=== PATIENT | female | born 1950 | race Caucasian/White ===

== ENCOUNTER 2016-10-21 07:09 | Day surgery (SDC) | payer BC ==
--- NOTE | ~2016-10-21 | OP ---
Record Of Operation [facility] [address] [address] NAME: CHEVY BANDA : [birth year] STATUS : REG [facility] PAT#: [id number] AGE: 66 ADM/REG DATE : 10/21/16 MR#: [id number] REPORT SERV DATE: 10/21/16 DICTATED BY: JUAN LUIS SUN DATE: 10/21/16 REPORT STATUS : Draft TRANSCRIBED BY: MODL DATE: 10/21/16 DATE OF PROCEDURE: 10/21/2016 PROCEDURE: Esophagogastroduodenoscopy. INDICATION: Follow up with the patient with severe erosive esophagitis. SEDATION: Diprivan. FINDING: Olympus video scope was passed into the esophagus. There was significant improvement from 08/24/2016 note. There were still inflammation and ulceration, but some of the mucosa had returned. Most of it was erosive changes and breaks in mucosa without definite ulceration. There was a mild stricture present. A small hiatal hernia present. The stomach and duodenum were normal. Retroflexion in the fundus was otherwise normal. IMPRESSION: Improved erosive esophagitis, probably down to grade 2 on the Savary-Rocha scale. PLAN: Repeat in six weeks. We will consider dilatation at that point. MG/DEREK Juan Luis Sun M.D. / [id number] CC: Emma España MARK
--- NOTE | ~2016-10-21 | EGD ---
EGD REPORT [facility] [address] [address] NAME: CHEVY BANDA : [birth year] STATUS : REG [facility]#: [id number] AGE: 66 ADM/REG DATE : 10/21/16 MR#: [id number] REPORT SERV DATE: 10/21/16 DICTATED BY: JUAN LUIS SUN DATE: 10/21/16 REPORT STATUS : Draft [facility]ANSCRIBED BY: [facility] DATE: 10/21/16 Endoscopy Center Patient Name: Chevy Banda Date of : 1950 Attending MD: JUAN LUIS SUN MD Procedure Date No Time: 10/21/2016 Procedure: Upper GI endoscopy Indications: Follow-up of reflux esophagitis Referring MD: ELY FISCHER MD Medicines: Propofol per Anesthesia Complications: No immediate complications. Procedure: Pre-Anesthesia Assessment: - ASA Grade Assessment: III - A patient with severe systemic disease. After obtaining informed consent, the endoscope was passed under direct vision. Throughout the procedure, the patient's blood pressure, pulse, and oxygen saturations were monitored continuously. The GIF H190 [id number] was introduced through the mouth, and advanced to the second part of duodenum. The upper GI endoscopy was accomplished without difficulty. The patient tolerated the procedure well. Findings: Savary-Rocha Grade IV (Grade I-III, complicated by ulcer(s), stricture(s), or shortening) esophagitis with bleeding was found in the lower third of the esophagus. A medium-sized hiatus hernia was present. The examined duodenum was normal. Impression: - Savary-Rocha Grade IV erosive esophagitis. - Hiatus hernia. - Normal examined duodenum. Recommendation: - Return to previous diet today. - Continue present medications. - Repeat the upper endoscopy in 6 weeks for surveillance. - Continue present medications. - The findings and recommendations were discussed with the patient and their family. - After the procedure, if you experience any pain in abdomen or chest,shortness of breath,fever,chills,blood in stool,rectal bleeding,vomiting of any material,nausea,black stools or weakness or dizziness, GO TO THE EMERGENCY IMMEDIATELY!!!!!!!!! EGD REPORT [address] [address] NAME: CHEVY BANDA : [birth year] STATUS : REG [facility]#: [id number] AGE: 66 ADM/REG DATE : 10/21/16 MR#: [id number] REPORT SERV DATE: 10/21/16 DICTATED BY: JUAN LUIS USN. DATE: 10/21/16 REPORT STATUS : Draft TRANSCRIBED BY: [employer] DATE: 10/21/16 Procedure Code(s): --- Professional --- 37372, Esophagogastroduodenoscopy, flexible, transoral; diagnostic, including collection of specimen(s) by brushing or washing, when performed (separate procedure) Diagnosis Code(s): --- Professional --- K20.8, Other esophagitis K44.9, Diaphragmatic hernia without obstruction or gangrene K21.0, Gastro-esophageal reflux disease with esophagitis CPT copyright 2013 [employer]. All rights reserved. The codes documented in this report are preliminary and upon cloth mercerizer back tender review may be revised to meet current compliance requirements. Attending Participation: I personally performed the entire procedure. Juan Luis Sun MD JUAN LUIS SUN MD 10/21/2016 8:39 AM This report has been signed electronically. Number of Addenda: 0 Note Initiated On: 10/21/2016 8:23 AM Scope Withdrawal Time 0 hours 0 minutes 0 seconds [address] [id number]
[~2016-10-21 07:09] MED LIST: ACET500CAP; ASAB PO; AT25; AT25 PO; BEN25 PO; CALTRA600D PO; CELLCEPT IV; CELLCEPT5 PO; KCL20UDL PO/LIQ; KLOR-CON 1010 MEQ PO; LEVOTHYROXIN100 MCG PO; LEVOTHYROXIN88 MCG PO; LORTABLIQ PO; LOVENOX40 SC; LYRICA PO/LIQ; LYRICA50 PO; MEDROLPAK4 PO; METHOC750B PO; MOBIC15 MG PO; NATURA2 OP; NEUR300 PO; NEXIUM40 MG PO; NEXIUM40 PO; NORCO1 TA2 PO; NORV5 PO; NYS500UDL PO; OCEAN NAS; OCUVITE PO; P10 PO; P20 PO; P5 PO; PEP20 PO; PEPCID40 MG PO; PREDNISONE2.5 MG PO; PRILOSEC40 MG PO; PROTONIX PO; SUCR PO; ULTRAM50 PO; VITAMIN D31000 UNIT PO; ZANTAC300 MG PO; ZOFRAN4 PO; ZOL100 PO; ZOL50 PO; [UNRECOGNIZED DRUG - OTHER] PO
[2016-12-04] MEDS ORDERED: MAX D3 PO (11:08)
[2016-12-04] MEDS ORDERED: MULTIPLE VIT PO (11:09)
[2016-12-04] MEDS ORDERED: BEN25 PO (11:11)
[2017-01-29] MEDS ORDERED: CELLCEPT5 PO (14:05)
[2017-01-29] MEDS ORDERED: AREDS EYE VIT PO (14:07)
[2017-01-29] MEDS ORDERED: VITAMIN B-121000 MC1 SL (14:18)
== END 2016-10-21 23:59 | disposition home or self-care (01) ==
LOC: DMU 07:09
PROVIDERS: Internal Medicine Gastroenterology
PROC: 0DJ08ZZ Inspection of Upper Intestinal Tract, Via Natural or Artificial Opening Endoscopic (ICD-10-PCS; principal; 2016-10-21 08:30)
DX: K21.0 Gastro-esophageal reflux disease with esophagitis (principal); K44.9 Diaphragmatic hernia without obstruction or gangrene; I10 Essential (primary) hypertension; E03.9 Hypothyroidism, unspecified; M34.1 CR(E)ST syndrome; D64.9 Anemia, unspecified; M19.90 Unspecified osteoarthritis, unspecified site; M35.3 Polymyalgia rheumatica; G62.9 Polyneuropathy, unspecified; Z88.8 Allergy status to other drugs, medicaments and biological substances; Z79.52 Long term (current) use of systemic steroids; Z79.899 Other long term (current) drug therapy

== ENCOUNTER 2016-12-09 07:09 | Day surgery (SDC) | payer BC ==
--- NOTE | ~2016-12-09 | EGD ---
EGD REPORT [facility] [address] [address] NAME: CHEVY BANDA : [birth year] STATUS : REG [facility]#: [id number] AGE: 66 ADM/REG DATE : 12/09/16 MR#: [id number] REPORT SERV DATE: 12/09/16 DICTATED BY: JUAN LUIS SUN DATE: 12/09/16 REPORT STATUS : Draft TRANSCRIBED BY: [facility] DATE: 12/09/16 Endoscopy Center Patient Name: Chevy Banda Date of : 1950 Attending MD: JUAN LUIS SUN MD Procedure Date No Time: 12/09/2016 Procedure: Upper GI endoscopy Indications: For therapy of esophageal stricture Referring MD: ELY FISCHER MD Medicines: Propofol per Anesthesia Complications: No immediate complications. Procedure: Pre-Anesthesia Assessment: - ASA Grade Assessment: III - A patient with severe systemic disease. After obtaining informed consent, the endoscope was passed under direct vision. Throughout the procedure, the patient's blood pressure, pulse, and oxygen saturations were monitored continuously. The GIF H190 [id number] was introduced through the mouth, and advanced to the second part of duodenum. The upper GI endoscopy was accomplished without difficulty. The patient tolerated the procedure well. Findings: Savary-Rocha Grade IV (Grade I-III, complicated by ulcer(s), stricture(s), or shortening) esophagitis with bleeding was found in the entire esophagus. A TTS dilator was passed through the scope. Dilation with a 12-13.5-15 mm x 5.5 cm CRE balloon (to a maximum balloon size of 15 mm) dilator was performed. Estimated blood loss was minimal. A small hiatus hernia was present. The examined duodenum was normal. Impression: - Savary-Rocha Grade IV erosive esophagitis. Dilated. - Hiatus hernia. - Normal examined duodenum. Recommendation: - Return to previous diet today. - Continue present medications. - Repeat the upper endoscopy in 8 weeks for retreatment. - The findings and recommendations were discussed with the patient and their family. - After the procedure, if you experience any pain in abdomen or chest,shortness of breath,fever,chills,blood in stool,rectal bleeding,vomiting of any material,nausea,black stools or weakness or dizziness, EGD REPORT [facility] [id number] [place]. [address] NAME: CHEVY BANDA : [birth year] STATUS : REG [facility]#: [id number] AGE: 66 ADM/REG DATE : 12/09/16 MR#: [id number] REPORT SERV DATE: 12/09/16 DICTATED BY: JUAN LUIS SUN DATE: 12/09/16 REPORT STATUS : Draft TRANSCRIBED BY: [employer] DATE: 12/09/16 GO TO THE EMERGENCY IMMEDIATELY!!!!!!!!! Procedure Code(s): --- Professional --- 85093, Esophagogastroduodenoscopy, flexible, transoral; with transendoscopic balloon dilation of esophagus (less than 30 mm diameter) Diagnosis Code(s): --- Professional --- K20.8, Other esophagitis K44.9, Diaphragmatic hernia without obstruction or gangrene K22.2, Esophageal obstruction CPT copyright 2013 [employer]. All rights reserved. The codes documented in this report are preliminary and upon welt stitch cleaner review may be revised to meet current compliance requirements. Attending Participation: I personally performed the entire procedure. Juan Luis Sun MD JUAN LUIS SUN MD 12/09/2016 9:09 AM This report has been signed electronically. Number of Addenda: 0 Note Initiated On: 12/09/2016 8:52 AM Scope Withdrawal Time 0 hours 0 minutes 0 seconds [address] [address]
--- NOTE | ~2016-12-09 | OP ---
Record Of Operation [facility] [address] [place]. [address] NAME: CHEVY BANDA : [birth year] [place]US : [place] [facility] [place]#: [id number] AGE: 66 ADM/REG DATE : 12/09/16 MR#: [id number] REPORT SERV DATE: 12/09/16 DICTATED BY: JUAN LUIS SUN DATE: 12/09/16 REPORT STATUS : Draft TRANSCRIBED BY: MODL DATE: 12/09/16 DATE OF PROCEDURE: 12/09/2016 PROCEDURE: Esophagogastroduodenoscopy and balloon dilatation. 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 Last done about two months ago. SEDATION: Diprivan. FINDINGS: Olympus videoscope was passed into the esophagus. There were still corrosions involving at least 75% of the circumference up to the proximal esophagus. All the ulcerations were much less deep and there was much decreased exudate. There was a stricture at the EG junction. A small hiatal hernia was noted. The CRE balloon was inflated from 12 to 15 mm with mild expansion. The luminal diameter was probably about 15 mm. The area was improved from before. IMPRESSION: Improved area of the erosive and ulcerative esophagitis. Savary-Rocha scale 4- 5. There was much less deep ulceration. There were still erosions on the surface, but it was much improved. PLAN: We will consider adding sodium bicarb to the present regimen and have PPI. MG/MODL Juan Luis Sun M.D. / [id number] CC: Emma España M.D.
[~2016-12-09 07:09] MED LIST changes: +MAX D3 PO; +MULTIPLE VIT PO
[2017-01-29] MEDS ORDERED: CELLCEPT5 PO (14:05)
[2017-01-29] MEDS ORDERED: AREDS EYE VIT PO (14:07)
[2017-01-29] MEDS ORDERED: VITAMIN B-121000 MC1 SL (14:18)
== END 2016-12-09 23:59 | disposition home health service (06) ==
LOC: DMU 07:09
PROVIDERS: Internal Medicine Gastroenterology
PROC: 0D758ZZ Dilation of Esophagus, Via Natural or Artificial Opening Endoscopic (ICD-10-PCS; principal; 2016-12-09 08:00)
DX: K22.2 Esophageal obstruction (principal); K44.9 Diaphragmatic hernia without obstruction or gangrene; I10 Essential (primary) hypertension; E03.9 Hypothyroidism, unspecified; K21.0 Gastro-esophageal reflux disease with esophagitis; K22.10 Ulcer of esophagus without bleeding; D64.9 Anemia, unspecified; F32.9 Major depressive disorder, single episode, unspecified; Z88.8 Allergy status to other drugs, medicaments and biological substances; M19.90 Unspecified osteoarthritis, unspecified site; Z90.49 Acquired absence of other specified parts of digestive tract; Z90.710 Acquired absence of both cervix and uterus; Z87.891 Personal history of nicotine dependence
CPT/HCPCS: C1726